=== PATIENT | male | born 1960 | race Caucasian/White ===

== ENCOUNTER → 2016-10-26 | Outpatient (CLI) | payer OTHER ==
[~2016-10-26] MED LIST: AMOXICILLIN500 M1 PO; BENTYL20 MG PO; GABAPENTIN600 MG PO; GLYBURIDE2.5 M1 PO; HYDROCODON-ACE1 EAC5 PO; MELOXICAM15 MG PO; MICRONASE5 M1 PO; NO MEDICATIONS; PANTOPRAZOLE SO40 MG PO; PROTONIX PO; SOMA PO
--- NOTE | ~2016-10-26 | CR181 ---
[facility] A Service of [facility] RADIOLOGY TEXT RESULTS PATIENT: NOHEMI OCAMPO JR LOCATION: [facility] : 56 UNIT #: [id number] AGE: [address]: Nhan Christine MD SEX: M ORDER DR: [id number] [facility] [address] [place], [place] [address] [id number] O MR#: [id number] Acc #: [id number] NAME: NOHEMI OCAMPO : 1960 SEX: M STUDY DATE/TIME: UNIT: [facility] ROOM: STUDY DESCRIPTION: CR Lumbar Spine 2 or 3 Views Attending Physician: Nhan Christine M.D. Referring Physician: Nhan Christine M.D. Ordering Physician: Nhan Christine M.D. Primary Care Physician: Claire Schilling M.D. MEDICAL IMAGING REPORT This report is preliminary unless electronic signature is present EXAM Lumbar spine series, 10/26/2016, 1739 hours. HISTORY Chronic low back pain, greater on the left side for 2 years. No known injury. COMPARISON CT abdomen and pelvis, 10/31/2015, with sagittal and coronal reconstructions. FINDINGS AP and lateral views of the lumbar spine and a cone lateral view of the lumbosacral junction were performed. There is approximately 30% compression deformity of L1 unchanged from previous CT scan, 10/31/2015. The remainder of the vertebral bodies are normal in height. There is multilevel endplate spurring. There is disc height loss at L5-S1. There is suggestion of facet arthropathy L4-5, L5-S1 without definite pars defects seen. IMPRESSION 1. Approximately 30% compression deformity of L1 similar to sagittal reconstructed images of CT abdomen and pelvis, 10/31/2015. This is not acute. 2. There is multilevel endplate spurring with lower lumbar facet degenerative change. There is disc height loss and spurring at L5-S1 also appearing similar to prior CT 10/31/2015. Dictated by... Diana Luevano M.D. THIS IS AN ELECTRONICALLY VERIFIED REPORT Diana Luevano M.D. at 10/27/2016 5:52 PM [facility] A Service of [facility] RADIOLOGY TEXT RESULTS PATIENT: NOHEMI OCAMPO JR LOCATION: [facility] #: [id number] : 56 UNIT #: [id number] AGE: [address]: Nhan Christine MD SEX: M ORDER DR: Jessie TD: 10/27/2016 16:07 JOB #: [id number] MEDICAL IMAGING REPORT Page 1 of 1 COPY
== END | disposition home or self-care (01) ==
LOC: CRAD 17:15
DX: M54.5 Low back pain (principal); M47.896 Other spondylosis, lumbar region; M51.87 Other intervertebral disc disorders, lumbosacral region
CPT/HCPCS: 72100